=== PATIENT | female | born 1955 | race Caucasian/White ===

== ENCOUNTER 2023-09-30 08:24 | Day surgery (SDC) | payer MEDICARE, OTHER, SELFPAY ==
[2023-09-30] VITALS (11 sets, daily range): BP systolic 138–149; BP diastolic 88–100; PULSE 82–94; RESP 12–20; TEMP 36.3–36.8; O2SAT 92–99; BMI 31.4
[2023-09-30] MEDS: OXYMETAZOLINE (AFRIN) SOAK 1 EACH TOPICAL (09:10)
[2023-09-30] MEDS: LACTATED RINGERS 1000 ML 1,000 ML 100 ML IV (09:30)
[2023-09-30] MEDS: SODIUM CHLORIDE 0.9 % (FLUSH) 10 ML SYRINGE IVF (09:30)
--- NOTE | 2023-09-30 10:15 | W.ANESCHARGE ---
Anesthesia Charges Start Date/Time Anesthesia Start Date: 09/30/23 Anesthesia Start Time: 10:31 Stop Date/Time Anesthesia Stop Date: 09/30/23 Anesthesia Stop Time: 11:26
[2023-09-30] MEDS: COCAINE HCL 4 % 4 ML SOLUTION NOSTRIL-B (10:53)
[2023-09-30] MEDS: BUPIVACAINE 0.5%/EPINEPHRINE 0.9 MG (30.9 ML) INJECTION (10:56)
[2023-09-30] MEDS: MUPIROCIN 1 GM PACKET 1 APPLIC TOPICAL (10:57)
[2023-09-30] MEDS: AYR SALINE NASAL GEL 1 APPLIC NOSTRIL-B (11:05)
--- NOTE | 2023-09-30 11:15 | W.PM.ENTPROC ---
Procedure Note Date of procedure: 09/30/23 Procedure: Preop diagnosis bilateral anterior ethmoid chronic rhinosinusitis, left middle turbinate hypertrophy, deviated septum, nasal obstruction, inferior turbinate hypertrophy bilateral Postoperative diagnosis same Procedure bilateral no scopic anterior ethmoidectomies, nasal septoplasty, submucous partial resection inferior turbinates Under general endotracheal anesthesia patient was prepped draped usual fashion the image guidance system was registered with good accuracy. The nose was decongested and injected. A right hemitransfixion incision was made. Left anterior posterior tunnels were created. A vertical incision was made through the cartilage anterior to the bone and a right posterior tunnel created. The posterior deflected portions of septal bone resected and a large piece was trimmed returned the posterior intraseptal space. The mid transfixion was closed with 2 4-0 chromic sutures. A stab incision was made in the anterior of the right inferior turbinate a tunnel created with a Kelvin dissector. The frida bone was outfractured and then a conservative anterior submucous resection performed. The Coblation Wand was used for hemostasis. This was repeated on the left side in identical fashion. The left middle turbinate was simply crushed with the Lokesh forceps. The anterior ethmoid was opened with an ethmoid forceps utilizing image guidance. Visualization however was quite easy with direct visualization. A right anterior ethmoid was performed as well Dissolvable gel pack was placed in the middle meatus on each side with a Merocel pack beneath. Silastic stents were secured on either side the septum with 3-0 nylon. The patient procedure well was taken recovery in satisfactory condition. Blood loss was 25 mL. Surgeon: Chao Harrington MD
--- NOTE | 2023-09-30 11:32 | W.ANESCHARGE ---
Anesthesia Charges Start Date/Time Anesthesia Start Date: 09/30/23 Anesthesia Start Time: 10:31 Stop Date/Time Anesthesia Stop Date: 09/30/23 Anesthesia Stop Time: 11:26
[2023-09-30] MEDS: IBUPROFEN 200 MG TABLET PO (12:22)
[2023-09-30] MEDS: ACETAMINOPHEN 325 MG TABLET PO (12:22)
== END 2023-09-30 12:49 | disposition home or self-care (01) ==
PROVIDERS: Visit Provider Otolaryngology
PROC: (CPT 31231; principal; 2023-09-30 09:30)
DX: J32.2 Chronic ethmoidal sinusitis (principal); J34.3 Hypertrophy of nasal turbinates; J34.2 Deviated nasal septum; J34.89 Other specified disorders of nose and nasal sinuses
CPT/HCPCS: 31254; 30520; 30140; 00160; 88305; A9270; J0330; J1100; J2250; J2405; J2704; J3010; J7120

== ENCOUNTER 2024-11-05 08:01 | Outpatient (CLI) | payer MEDICARE, OTHER, SELFPAY ==
--- NOTE | 2024-11-05 08:00 | CRLHL7_ITS ---
For Patients: As a result of the Century Cures Act, medical imaging exams and procedure reports are released immediately into your electronic medical record. You may view this report before your referring provider. If you have questions, please contact your health care provider. INDICATION: Chronic sinusitis. COMPARISON: 02/28/2023. TECHNIQUE: Noncontrast CT of the paranasal sinuses. FINDINGS: Mild mucosal thickening within the bilateral maxillary sinuses measuring less than 5 mm in maximal thickness. Bilateral osteomeatal complexes are patent. Nasal septal deviation to the right measuring approximately 3 mm from midline. Mild atrophy of the right middle nasal turbinate. Nasal cavity is otherwise clear. Frontal sinuses and ethmoid air cells are clear. Bilateral sphenoid sinuses are clear. Bilateral sphenoid ostia patent. Mastoid air cells are clear. No facial fractures. Normal orbits bilaterally. Partially visualized intracranial contents are unremarkable. Mild degenerative changes of the bilateral TMJ. IMPRESSION: 1. Mild mucosal thickening of the bilateral maxillary sinuses. No air-fluid levels. Ostiomeatal complexes are patent 2. Nasoseptal deviation to the right. 3. No facial fracture Please note that all CT scans at this facility use dose modulation, iterative reconstruction, and/or weight-based dosing when appropriate to reduce radiation dose to as low as reasonably achievable. Dictated by Vicente Pena MD @ 11/05/2024 8:48:09 AM (Electronically Signed)
== END 2024-11-05 08:02 | disposition home or self-care (01) ==
LOC: CT 08:02
PROVIDERS: Visit Provider Otolaryngology
DX: J32.9 Chronic sinusitis, unspecified (principal); J32.0 Chronic maxillary sinusitis; J34.2 Deviated nasal septum
CPT/HCPCS: 70486

== ENCOUNTER 2025-01-04 11:33 | Day surgery (SDC) | payer MEDICARE, OTHER, SELFPAY ==
[2025-01-04] VITALS (8 sets, daily range): BP systolic 120–142; BP diastolic 81–93; PULSE 71–92; RESP 12–16; TEMP 36.1–36.6; O2SAT 92–96; BMI 29.6
[2025-01-04] MEDS: LACTATED RINGERS 1000 ML 1,000 ML 100 ML IV (12:10)
[2025-01-04] MEDS: SODIUM CHLORIDE 0.9 % (FLUSH) 10 ML SYRINGE IVF (12:10)
--- NOTE | 2025-01-04 13:43 | W.PM.ENTPROC ---
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 The anterior heads of each inferior turbinate were injected as well. The Coblation Wand was used to cauterize intramurally the anterior head inferior 10% and posterior head on the right side. Prior to that the turbinate was outfractured. The left inferior turbinate was outfractured the Coblation will use at the anterior head and posterior had only. The patient procedure well was taken recovery satisfactory condition. Blood loss less than 10 mL. Surgeon: Chao Harrington MD
--- NOTE | 2025-01-04 13:53 | P.ANES_ITS ---
Anesthesia Charges Start Date/Time Anesthesia Start Date: 01/04/25 Anesthesia Start Time: 13:16 Stop Date/Time Anesthesia Stop Date: 01/04/25 Anesthesia Stop Time: 13:53 Coding CPT Codes CPT Codes: ANESTH NOSE/SINUS SURGERY - 74855 ([id number]) P2 - PATIENT W/MILD SYST DISEASE, QK - MANUFACTURING ENGINEER AUTOMOTIVE 2-4 CNCRNT ANES PROC, QX - STENOTYPIST SVC W/ MD MED DIRECTION
--- NOTE | 2025-01-04 13:53 | W.ANESCHARGE ---
Anesthesia Charges Start Date/Time Anesthesia Start Date: 01/04/25 Anesthesia Start Time: 13:16 Stop Date/Time Anesthesia Stop Date: 01/04/25 Anesthesia Stop Time: 13:53 Coding CPT Codes CPT Codes: ANESTH NOSE/SINUS SURGERY - 53250 ([id number]) P2 - PATIENT W/MILD SYST DISEASE, QK - SENIOR ARCHITECTURAL DESIGNER 2-4 CNCRNT ANES PROC, QX - HOSPITALITY INTERN SVC W/ MD MED DIRECTION
--- NOTE | 2025-01-04 14:21 | P.ANES_ITS ---
Anesthesia Charges Start Date/Time Anesthesia Start Date: 01/04/25 Anesthesia Start Time: 13:16 Stop Date/Time Anesthesia Stop Date: 01/04/25 Anesthesia Stop Time: 13:53 Coding CPT Codes CPT Codes: ANESTH NOSE/SINUS SURGERY - 52975 ([id number]) QK - COSTUME MAKER 2-4 CNCRNT ANES PROC, QX - FUNDS DEVELOPMENT DIRECTOR SVC W/ MD MED DIRECTION, P2 - PATIENT W/MILD SYST DISEASE
--- NOTE | 2025-01-04 14:21 | W.ANESCHARGE ---
Anesthesia Charges Start Date/Time Anesthesia Start Date: 01/04/25 Anesthesia Start Time: 13:16 Stop Date/Time Anesthesia Stop Date: 01/04/25 Anesthesia Stop Time: 13:53 Coding CPT Codes CPT Codes: ANESTH NOSE/SINUS SURGERY - 26508 ([id number]) QK - FINGERNAIL TECHNICIAN 2-4 CNCRNT ANES PROC, QX - STORAGE FACILITY HOUSEKEEPER SVC W/ MD MED DIRECTION, P2 - PATIENT W/MILD SYST DISEASE
[2025-01-04] MEDS: ACETAMINOPHEN 325 MG TABLET PO (14:29)
[2025-01-04] MEDS: IBUPROFEN 200 MG TABLET PO (14:30)
== END 2025-01-04 14:54 | disposition home or self-care (01) ==
LOC: OR 11:35
PROVIDERS: Visit Provider Otolaryngology
PROC: (CPT 30802; principal; 2025-01-04 13:15)
DX: J34.3 Hypertrophy of nasal turbinates (principal); R09.82 Postnasal drip; J33.1 Polypoid sinus degeneration; J34.89 Other specified disorders of nose and nasal sinuses
CPT/HCPCS: 30802; 00160; A9270; J0330; J1100; J2250; J2405; J2704; J3010; J7120